=== PATIENT | female | born 1985 | race Caucasian/White ===

== ENCOUNTER 2016-06-22 14:26 | Emergency (ER) | payer MEDICAID ==
--- NOTE | 2016-06-22 14:55 | Emergency Department Record ---
History of Present Illness - General Chief complaint: Female Urogenital Problem Stated complaint: UTI Time Seen by Provider: 06/22/16 14:42 Source: Patient Mode of Arrival: Ambulatory Limitations: No limitations - History of Present Illness Initial comments: 30 yo female presents to ED with a CC of urinary urgency and burning that began approximately 5 days ago. Patient denies fevers, chills, or back pain symptoms , and the patient denies health problems at her baseline. MD Complaint: Dysuria Onset/Timin -: Days(s) Location: Suprapubic Radiation: Non-radiating Severity: Moderate Severity scale (1-10): 7 Quality: Burning Consistency: Intermittent Improves with: None Worsens with: Urination Patient : No LMP Date: 06/11/16 Gestational Age (wks) based on LMP: 1 Associated Symptoms: Abdominal pain, Other - Related Data Home Medications Medication Instructions Recorded Confirmed Last Taken Lamotrigine [Lamictal] 150 mg PO BID 09/10/14 06/22/16 03/27/16 Gabapentin [Neurontin] 800 mg PO BID 01/21/16 06/22/16 03/27/16 Trazodone HCl 100 mg PO DAILY 01/21/16 06/22/16 03/27/16 Previous Rx's Medication Instructions Recorded Ibuprofen [Motrin 200Mg] 600 mg PO Q8HR #30 tablet 09/21/13 Nitrofurantoin [place] [Macrobid] 100 mg PO BID #14 capsule 06/22/16 Allergies Allergy/AdvReac Type Severity Reaction Status Date / Time No Known Drug Allergies Allergy Verified 06/22/16 14:46 Travel Screening - Travel/Exposure Within Last 30 Days Have you traveled within the last 30 days?: No Review of Systems Constitutional: Denies: Chills, Fever, Malaise, Night sweats Eyes: Denies: Eye discharge, Eye pain ENT: Denies: Congestion, Ear pain, Epistaxis Respiratory: Denies: Cough, Dyspnea Cardiovascular: Denies: Chest pain, Dyspnea on exertion Endocrine: Denies: Fatigue, Heat or cold intolerance Gastrointestinal: Denies: Abdominal pain, Nausea, Vomiting Genitourinary: Reports: Dysuria, Frequency. Denies: Retention Musculoskeletal: Denies: Arthralgia, Back pain Skin: Denies: Bruising, Change in color Neurological: Denies: Abnormal gait, Confusion, Headache, Seizure Psychiatric: Denies: Anxiety Hematological/Lymphatic: Denies: Anemia, Blood Clots Past Medical History - SOCIAL HISTORY Smoking Status: Current every day smoker Alcohol Use: None Drug Use: None - RESPIRATORY Hx Respiratory Disorders: No - CARDIOVASCULAR Hx Cardio Disorders: No - NEURO Hx Neuro Disorders: No - GI Hx GI Disorders: No - Hx Genitourinary Disorders: No - ENDOCRINE Hx Endocrine Disorders: No - MUSCULOSKELETAL Hx Musculoskeletal Disorders: Yes Hx Back Injury: Yes (Neck and head injury in 2009) - PSYCH Hx Psych Problems: Yes Hx Anxiety: Yes - HEMATOLOGY/ONCOLOGY Hx Hematology/Oncology Disorders: No Family Medical History Any Significant Family History?: Yes Hx Cancer: Grandparents *Cancer Comment: Stomach and breast Physical Exam - General General Appearance: Alert, Oriented x3, Cooperative, No acute distress Limitations: No limitations - Head Head exam: Atraumatic, Normocephalic, Normal inspection Head exam detail: negative: Abrasion, Contusion, Wolfe's sign, General tenderness, Hematoma, Laceration - Eye Eye exam: Normal appearance. negative: Conjunctival injection, Periorbital swelling, Periorbital tenderness, Scleral icterus - ENT Ear exam: negative: Auricular hematoma, Auricular trauma Nasal Exam: negative: Discharge, Dried blood, Foreign body, Sinus tenderness Mouth exam: negative: Drooling, Laceration, Muffled voice, Tongue elevation - Neck Neck exam: Normal inspection. negative: Meningismus, Tenderness - Respiratory Respiratory exam: Normal lung sounds bilaterally. negative: Respiratory distress, Rhonchi, Stridor, Wheezes - Cardiovascular Cardiovascular Exam: Regular rate, Normal rhythm, Normal heart sounds - GI/Abdominal GI/Abdominal exam: Soft. negative: Rebound, Rigid, Tenderness - Rectal Rectal exam: Deferred - exam: Deferred - Extremities Extremities exam: Normal inspection. negative: Calf tenderness, Pedal edema, Tenderness - Back Back exam: Denies: CVA tenderness (R), CVA tenderness (L) - Neurological Neurological exam: Alert, Normal gait, Oriented X3 - Psychiatric Psychiatric exam: Normal affect, Normal mood - Skin Skin exam: Normal color. negative: Abrasion Type of lesion: negative: abrasion Course Vital Signs 06/22/16 14:41 Temperature 98.4 F Pulse Rate 100 H Respiratory 20 Rate Blood Pressure 122/75 Pulse Ox 99 - Reevaluation(s) Reevaluation #1: 06/22/16 15:09 UA reviewed, 1+ bacteria, 15-20 WBCs, appears c/w infection. Will prescribe Macrobid for treatment of her urinary tract infection symptoms. Patient appears stable for discharge at this time. Disposition Disposition: Discharge Clinical Impression: Urinary tract infection Qualifiers: Urinary tract infection type: site unspecified Hematuria presence: without hematuria Qualified Code(s): N39.0 - Urinary tract infection, site not specified Disposition: Home, Self-Care Condition: (2) Stable Instructions: Urinary Tract Infection in Women (ED) Additional Instructions: Return to ED if your symptoms worsen or if you have any concerns. Macrobid as directed. Follow-up with your family doctor in 3-5 days as directed. Prescriptions: Nitrofurantoin [place] [Macrobid] 100 mg PO BID #14 capsule Forms: Patient Portal Access Time of Disposition: 15:11
[2016-06-22 14:59] LABS: URINE APPEARANCE SL CLOUDY; URINE BILIRUBIN NEGATIVE (NEGATIVE); URINE BLOOD TRACE-I (NEGATIVE); URINE COLOR YELLOW; URINE GLUCOSE (UA) NEGATIVE (NEGATIVE); URINE KETONE NEGATIVE (NEGATIVE); URINE LEUKOCYTE ESTERASE SMALL (NEGATIVE); URINE NITRITE NEGATIVE (NEGATIVE); URINE PROTEIN NEGATIVE (NEGATIVE); URINE UROBILINOGEN 0.2 E.U./dL (0.20 - 1.00)
[2016-06-22 15:07] LABS: URINE BACTERIA 1+
== END 2016-06-22 15:22 | disposition home or self-care (01) ==
LOC: ER 14:26
DX: N39.0 Urinary tract infection, site not specified (principal); R10.9 Unspecified abdominal pain
CPT/HCPCS: 81001; 99282

== ENCOUNTER 2016-07-22 10:55 | Emergency (ER) | payer MEDICAID ==
--- NOTE | 2016-07-22 11:24 | Emergency Department Record ---
History of Present Illness - General Chief complaint: Female Urogenital Problem Stated complaint: MY KIDNEYS ARE HURTING Time Seen by Provider: 07/22/16 11:23 Source: Patient Mode of Arrival: Ambulatory Limitations: No limitations - History of Present Illness Initial comments: The patient is here due to a one week hx of bilateral R>L flank pain with dysuria. She has had UTI's and kidney infections in the past and it feels similar now but the pain is worse. There is no reported fever, chills, vomiting , or diarrhea. MD Complaint: Dysuria Onset/Timin -: Week(s) Radiation: R flank Severity: Severe Severity scale (1-10): 9 Quality: Sharp Consistency: Constant Improves with: None Worsens with: None Associated Symptoms: Other - Related Data Home Medications Medication Instructions Recorded Confirmed Last Taken Lamotrigine [Lamictal] 150 mg PO BID 09/10/14 07/22/16 03/27/16 Gabapentin [Neurontin] 800 mg PO BID 01/21/16 07/22/16 03/27/16 Trazodone HCl 100 mg PO DAILY 01/21/16 07/22/16 03/27/16 Previous Rx's Medication Instructions Recorded Ibuprofen [Motrin 200Mg] 600 mg PO Q8HR #30 tablet 09/21/13 Ciprofloxacin HCl [Cipro] 500 mg PO Q12HR #14 tablet 07/22/16 Hydrocodone/Acetaminophen [Citra 1 - 2 each PO .EVERY 4-6 HRS PRN 07/22/16 5-325 Tablet] #20 tablet Allergies Allergy/AdvReac Type Severity Reaction Status Date / Time No Known Drug Allergies Allergy Verified 07/22/16 11:14 Travel Screening - Travel/Exposure Within Last 30 Days Have you traveled within the last 30 days?: No Review of Systems Constitutional: Denies: Chills, Fever Eyes: Denies: Eye discharge ENT: Denies: Congestion Respiratory: Denies: Cough, Dyspnea Past Medical History - SOCIAL HISTORY Smoking Status: Current every day smoker Alcohol Use: None Drug Use: None - RESPIRATORY Hx Respiratory Disorders: No - CARDIOVASCULAR Hx Cardio Disorders: No - NEURO Hx Neuro Disorders: No - GI Hx GI Disorders: No - Hx Genitourinary Disorders: Yes Hx UTI: Yes - ENDOCRINE Hx Endocrine Disorders: No - MUSCULOSKELETAL Hx Musculoskeletal Disorders: Yes Hx Back Injury: Yes (Neck and head injury in 2009) - PSYCH Hx Psych Problems: Yes Hx Anxiety: Yes - HEMATOLOGY/ONCOLOGY Hx Hematology/Oncology Disorders: No Family Medical History Any Significant Family History?: Yes Hx Cancer: Grandparents *Cancer Comment: Stomach and breast Physical Exam - General General Appearance: Alert, Oriented x3, Cooperative, No acute distress - Head Head exam: Atraumatic, Normocephalic, Normal inspection - Eye Eye exam: Normal appearance, PERRL - ENT Throat exam: Normal inspection. negative: Tonsillar erythema, Tonsillar exudate - Neck Neck exam: Normal inspection, Full ROM. negative: Tenderness - Respiratory Respiratory exam: Normal lung sounds bilaterally. negative: Respiratory distress - Cardiovascular Cardiovascular Exam: Regular rate, Normal rhythm, Normal heart sounds - GI/Abdominal GI/Abdominal exam: Soft. negative: Guarding, Rebound, Rigid, Tenderness - Back Back exam: Reports: CVA tenderness (R) (mild.), CVA tenderness (L) (mild.) - Neurological Neurological exam: Alert, Normal gait. negative: Abnormal gait, Motor sensory deficit Course Vital Signs 07/22/16 11:09 Temperature 98.3 F Pulse Rate 110 H Respiratory 18 Rate Blood Pressure 139/77 Pulse Ox 99 - Reevaluation(s) Reevaluation #1: The patient is doing better at this time. She is still having the pain but it is improved. I explained to her that it appears that she has a mild kidney infection. We will refer the patient to Dr. Forde in the Specialty clinic for next week for further eval. 07/22/16 13:43 Medical Decision Making - Data Complexity MDM Data: Labs Ordered and/or Reviewed, X-Ray Ordered and/or Reviewed - Lab Data Result diagrams: 07/22/16 11:53 07/22/16 11:53 - Radiology Data Radiology results: Report reviewed (CT: Neg stone or hydro but prob. Pyelonephritis R kidney.) Disposition Disposition: Discharge Clinical Impression: Pyelonephritis Disposition: Home, Self-Care Condition: (1) Good Instructions: Acute Pyelonephritis (ED) Additional Instructions: Please drink plenty of fluids and take the Cipro and pain medicines as directed. Please return to the ER for any increased pain, fever, or vomiting. Please see Dr. Forde next week in the Specialty clinic as directed. Prescriptions: Ciprofloxacin HCl [Cipro] 500 mg PO Q12HR #14 tablet Hydrocodone/Acetaminophen [Citra 5-325 Tablet] 1 - 2 each PO .EVERY 4-6 HRS PRN #20 tablet PRN Reason: Pain Forms: Patient Portal Access Time of Disposition: 13:48
[2016-07-22] MEDS ORDERED: 0.9 % SODIUM CHLORIDE 1,000 ML BAG IV ONE (11:31)
[2016-07-22 12:10] LABS: URINE BILIRUBIN NEGATIVE (NEGATIVE); URINE BLOOD MODERATE (NEGATIVE); URINE COLOR YELLOW; URINE GLUCOSE (UA) NEGATIVE (NEGATIVE); URINE KETONE NEGATIVE (NEGATIVE); URINE LEUKOCYTE ESTERASE MODERATE (NEGATIVE); URINE NITRITE NEGATIVE (NEGATIVE); URINE PROTEIN TRACE (NEGATIVE); URINE UROBILINOGEN 0.2 E.U./dL (0.20 - 1.00)
[2016-07-22 12:12] LABS: HEMATOCRIT 40.1 % (35.0-47.0); HEMOGLOBIN 13.6 gm/dl (11.6-16.0); MEAN CELL VOLUME 91.3 fl (81-97); MEAN CORPUSCULAR HGB CONC 33.9 g/dl (32-36); MEAN PLATELET VOLUME 9.2 fl (7.4-10.4); PLATELET COUNT 277 K/uL (130-400); RED BLOOD COUNT 4.39 M/uL (3.80-5.40); RED CELL DISTRIBUTION WIDTH 12.7 % (11.5-14.5); WHITE BLOOD COUNT W/O DIFF 13.1 K/uL (4.2-12.2)
[2016-07-22 12:14] LABS: HCG,QUALITATIVE URINE NEGATIVE (NEGATIVE)
[2016-07-22] MEDS ORDERED: ONDANSETRON HCL IV 4 MG/2 ML VIAL IVP ONE (12:16)
[2016-07-22] MEDS ORDERED: KETOROLAC 30 MG/ML VIAL IVP ONE ×2 (12:16→12:51)
[2016-07-22 12:17] LABS: URINE APPEARANCE CLOUDY; URINE WBC 21 - 35 (0-2/hpf)
[2016-07-22 12:18] LABS: URINE BACTERIA 2+
[2016-07-22 12:24] LABS: ANION GAP 9.1 (7-16); BLOOD UREA NITROGEN 12 mg/dL (7-17); CARBON DIOXIDE 27.9 mmol/L (22-30); CREATININE 0.6 mg/dL (0.52-1.04); EST GLOMERULAR FILTRATION RATE > 60 ml/min; GLUCOSE,RANDOM 108 mg/dL (70-110)
[2016-07-22] MEDS ORDERED: CEFTRIAXONE SODIUM 1 GM in 0.9 % SODIUM CHLORIDE 100ML 100 ML IVPB ONE (12:31)
[2016-07-22] MEDS ORDERED: HYDROCODONE/APAP 5/325MG TABLET PO ONE (13:45)
--- NOTE | 2016-07-28 10:02 | CT SCAN REPORT ---
EXAM: CT SCAN OF THE ABDOMEN AND PELVIS WITHOUT CONTRAST HISTORY: PATIENT HAS KIDNEY PAIN. PAINFUL URINATION. TECHNIQUE: Serial axial CT scan of the abdomen and pelvis was performed in 3.75 mm intervals from the dome of the diaphragm down to the pubic symphysis without the use of intravenous or oral contrast. Comparison: CT scan of the abdomen and pelvis dated 12/12/13 is provided. FINDINGS: The lung windows of the lung bases demonstrate no CT evidence of a focal infiltrate or pleural effusion. 3 mm nodule at the anterior aspect of the right middle lobe is unchanged with respect to the prior CT scan. The visualized heart size and contour is within normal limits. The liver, spleen, pancreas, gallbladder, and bilateral adrenal glands appear unremarkable. There is asymmetric hypodensity of the right kidney with mild perinephric fat stranding. No obvious right sided hydronephrosis or hydroureter is noted. No renal or ureteral calculi can be identified, therefore, I suspect this asymmetric appearance of the right kidney may be related to pyelonephritis. Clinical correlation is recommended. The contour and caliber of the abdominal aorta is within normal limits. There is no CT evidence of retroperitoneal, pelvic, or inguinal lymphadenopathy. The bowel gas pattern is nonspecific and nonobstructive. There is no CT evidence of free intraperitoneal fluid or free intraperitoneal air. The urinary bladder is unremarkable. The uterus is retroverted. Occasional follicles are identified within the bilateral ovaries. Bone windows demonstrate no CT evidence of a fracture or dislocation of the visualized osseous structures of the abdomen and pelvis. IMPRESSION: ASYMMETRIC APPEARANCE OF THE RIGHT KIDNEY IS NOTED DESCRIBED ABOVE WITHOUT CT EVIDENCE OF RENAL OR URETERAL CALCULI. NO OBVIOUS HYDRONEPHROSIS OR HYDROURETER IS NOTED. THEREFORE, I SUSPECT THESE FINDINGS MAY BE RELATED TO PYELONEPHRITIS. CLINICAL CORRELATION IS RECOMMENDED. JOB NUMBER: [id number] [facility]
== END 2016-07-22 13:55 | disposition home or self-care (01) ==
LOC: ER 10:55
DX: N10 Acute pyelonephritis (principal)
CPT/HCPCS: 99284 ×2; 96376; 96365; 96375; 80048; 81001; 81025; 85027; 74176; J1885; J2405; J7030

== ENCOUNTER 2017-06-16 17:22 | Emergency (ER) | payer MEDICAID ==
[2017-06-16] MEDS ORDERED: METHYLPREDNISOLONE PF 125MG/VIAL IM ONE (18:17)
[2017-06-16] MEDS ORDERED: DIPHENHYDRAMINE HCL 25 MG CAPSULE PO ONE (18:17)
--- NOTE | 2017-06-16 18:26 | Emergency Department Record ---
History of Present Illness - General Chief complaint: Rash Stated complaint: POISON DEL[place] Time Seen by Provider: 06/16/17 18:12 Source: Patient Mode of Arrival: Ambulatory Limitations: No limitations - History of Present Illness Initial comments: pt is c/o poison delmar. she has been doing logging. she has had poison delmar many times in the past. it is on her forearms and face. complaint: Rash Onset/Timin -: Days(s) Hx Tetanus Toxoid Vaccination: Yes Year of Tetanus Vaccination: unknown Location: Face, LUE, RUE Severity: Mild - Related Data Previous Rx's Medication Instructions Recorded Ibuprofen 200 mg Tablet [Motrin 600 mg PO Q8HR #30 tablet 09/21/13 200Mg] Methylprednisolone [Medrol Dose 4 mg PO ASDIR #1 tab.ds.pk 06/16/17 Pack] Allergies Allergy/AdvReac Type Severity Reaction Status Date / Time No Known Drug Allergies Allergy Verified 06/16/17 18:02 Travel Screening - Travel/Exposure Within Last 30 Days Have you traveled within the last 30 days?: No - Travel/Exposure Within Last Year Have you traveled outside the [place] in the last year?: No - Additonal Travel Details Have you been exposed to anyone with a communicable illness?: No - Travel Symptoms Symptom Screening: None Review of Systems Reviewed: No additional complaints except as noted below Constitutional: Reports: As per HPI. Denies: Chills, Fever, Malaise, Night sweats, Weakness, Weight change Eyes: Reports: As per HPI. Denies: Eye discharge, Eye pain, Photophobia, Vision change ENT: Reports: As per HPI. Denies: Congestion, Dental pain, Ear pain, Epistaxis , Hearing loss, Throat pain Respiratory: Reports: As per HPI. Denies: Cough, Dyspnea, Hemoptysis, Stridor, Wheezes Cardiovascular: Reports: As per HPI. Denies: Arrhythmia, Chest pain, Dyspnea on exertion, Edema, Murmurs, Orthopnea, Palpitations, Paroxysmal nocturnal dyspnea, Rheumatic Fever, Syncope Endocrine: Reports: As per HPI. Denies: Fatigue, Heat or cold intolerance, Polydipsia, Polyuria Gastrointestinal: Reports: As per HPI. Denies: Abdominal pain, Constipation, Diarrhea, Hematemesis, Hematochezia, Melena, Nausea, Vomiting Genitourinary: Reports: As per HPI. Denies: Abnormal menses, Discharge, Dyspareunia, Dysuria, Frequency, Hematuria, Incontinence, Retention, Urgency Musculoskeletal: Reports: As per HPI. Denies: Arthralgia, Back pain, Gout, Joint swelling, Myalgia, Neck pain Skin: Reports: As per HPI. Denies: Bruising, Change in color, Change in hair/ nails, Lesions, Pruritus, Rash Neurological: Reports: As per HPI. Denies: Abnormal gait, Confusion, Headache, Numbness, Paresthesias, Seizure, Tingling, Tremors, Vertigo, Weakness Psychiatric: Reports: As per HPI. Denies: Anxiety, Auditory hallucinations, Depression, Homicidal thoughts, Suicidal thoughts, Visual hallucinations Hematological/Lymphatic: Reports: As per HPI. Denies: Anemia, Blood Clots, Easy bleeding, Easy bruising, Swollen glands Past Medical History - SOCIAL HISTORY Smoking Status: Current every day smoker Alcohol Use: Heavy Drug Use: Occasional Drug Use Detail:: Marijuana - RESPIRATORY Hx Respiratory Disorders: No - CARDIOVASCULAR Hx Cardio Disorders: No - NEURO Hx Neuro Disorders: No - GI Hx GI Disorders: No - Hx Genitourinary Disorders: Yes Hx UTI: Yes - ENDOCRINE Hx Endocrine Disorders: No - MUSCULOSKELETAL Hx Musculoskeletal Disorders: Yes Hx Back Injury: Yes (Neck and head injury in 2010) - PSYCH Hx Psych Problems: Yes Hx Anxiety: Yes - HEMATOLOGY/ONCOLOGY Hx Hematology/Oncology Disorders: No Family Medical History Any Significant Family History?: No Hx Cancer: Grandparents *Cancer Comment: Stomach and breast Physical Exam - General General Appearance: Alert, Oriented x3, Cooperative, No acute distress - Head Head exam: Normal inspection - Eye Eye exam: Normal appearance, PERRL, EOMI Pupils: Normal accommodation - ENT ENT exam: Normal exam, Mucous membranes moist, Normal external ear exam, Normal orophraynx Ear exam: Normal external inspection. negative: External canal tenderness Nasal Exam: Normal inspection. negative: Discharge, Sinus tenderness Mouth exam: Normal external inspection, Tongue normal Teeth exam: Normal inspection. negative: Dental caries Throat exam: Normal inspection. negative: Tonsillar erythema, Tonsillar exudate - Neck Neck exam: Normal inspection, Full ROM. negative: Tenderness - Respiratory Respiratory exam: Normal lung sounds bilaterally. negative: Respiratory distress - Cardiovascular Cardiovascular Exam: Regular rate, Normal rhythm, Normal heart sounds - GI/Abdominal GI/Abdominal exam: Soft, Normal bowel sounds. negative: Tenderness - Rectal Rectal exam: Deferred - exam: Deferred - Extremities Extremities exam: Normal inspection, Full ROM, Normal capillary refill. negative: Tenderness - Back Back exam: Reports: Normal inspection, Full ROM. Denies: Muscle spasm, Rash noted, Tenderness - Neurological Neurological exam: Alert, Normal gait, Oriented X3, Reflexes normal - Psychiatric Psychiatric exam: Normal affect, Normal mood - Skin Skin exam: Dry, Intact, Normal color, Rash, Warm Distribution of rash: Face, RUE, LUE Description of rash: Crusting, Erythematous, Vesicular Course Vital Signs 06/16/17 17:55 Temperature 98.8 F Pulse Rate 106 H Respiratory 18 Rate Blood Pressure 145/96 Pulse Ox 98 Disposition Disposition: Discharge Clinical Impression: Poison delmar dermatitis Disposition: Home, Self-Care Condition: (1) Good Instructions: Poison [place] (ED), Cold Compress or Soak (ED) Additional Instructions: follow up with family doctor. return sooner if worse. continue benadryl every 6 hours as needed Prescriptions: Methylprednisolone [Medrol Dose Pack] 4 mg PO ASDIR #1 tab.ds.pk Forms: Patient Portal Access Quality - Quality Measures Quality Measures: N/A - Blood Pressure Screening Does Patient Have Any of the Following: No Blood Pressure Classification: Hypertensive Reading Systolic Measurement: 145 Diastolic Measurement: 96 Screening for High Blood Pressure: < First Hypertensive BP, F/U Documented > [ [id number]] First Hypertensive Follow-up Interventions: Follow-up with rescreen GT 1 day and LT 4 weeks.
== END 2017-06-16 19:28 | disposition home or self-care (01) ==
LOC: ER 17:22
DX: L23.7 Allergic contact dermatitis due to plants, except food (principal)
CPT/HCPCS: 96372; 99283; J2930

== ENCOUNTER 2017-11-17 18:30 | Emergency (ER) | payer MEDICAID ==
[2017-11-17] MEDS ORDERED: PROPARACAINE HCL OPTH 15ML BTL OPTH ONE ×2 (18:46→18:48)
[2017-11-17] MEDS ORDERED: GENTAMICIN SULFATE 0.3% OPTH 5 ML BTL OPTH ONE (19:05)
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
== END 2017-11-17 19:26 | disposition home or self-care (01) ==
LOC: ER 18:30
DX: S05.01XA Injury of conjunctiva and corneal abrasion without foreign body, right eye, initial encounter (principal); W22.8XXA Striking against or struck by other objects, initial encounter; Y92.009 Unspecified place in unspecified non-institutional (private) residence as the place of occurrence of the external cause; F17.210 Nicotine dependence, cigarettes, uncomplicated
CPT/HCPCS: 99282

== ENCOUNTER 2018-03-02 20:32 | Emergency (ER) | payer MEDICAID ==
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
[2018-03-02] MEDS: 0.9 % SODIUM CHLORIDE 1000ML 1,000 ML IV SCH (20:57)
[2018-03-02] MEDS: ONDANSETRON HCL IV 4 MG/2 ML VIAL IVP ONE (20:58)
[2018-03-02] MEDS: MORPHINE SULFATE 10 MG/ML VIAL IVP ONE (20:58)
[2018-03-02 21:00] LABS: HEMATOCRIT 39.1 % (35.0-47.0); HEMOGLOBIN 12.8 gm/dl (11.6-16.0); MEAN CELL VOLUME 89.3 fl (81-97); MEAN CORPUSCULAR HEMOGLOBIN 29.2 pg (27-33); MEAN CORPUSCULAR HGB CONC 32.7 g/dl (32-36); MEAN PLATELET VOLUME 9.2 fl (7.4-10.4); PLATELET COUNT 313 K/uL (130-400); RED BLOOD COUNT 4.38 M/uL (3.80-5.40); RED CELL DISTRIBUTION WIDTH 13.5 % (11.5-14.5); WHITE BLOOD COUNT W/O DIFF 15.2 K/uL (4.2-12.2)
[2018-03-02 21:08] LABS: BLOOD UREA NITROGEN 13 mg/dL (6-20); CREATININE 0.7 mg/dL (0.5-0.9); EST GLOMERULAR FILTRATION RATE > 60 mL/min; TOTAL PROTEIN 6.4 g/dL (6.6-8.7)
[2018-03-02 21:10] LABS: GLUCOSE,RANDOM 171 mg/dL (74-109)
[2018-03-02 21:13] LABS: ALB/GLOB RATIO 1.8 (1.1-1.8); ALBUMIN 4.1 g/dL (4.0-5.0); ALKALINE PHOSPHATASE 63 U/L (35-104); ALT/SGPT 26 U/L (<33); AST/SGOT 25 U/L (10.0-35.0)
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
== END 2018-03-03 00:24 | disposition short-term general hospital (02) ==
LOC: ER 20:32
DX: S27.0XXA Traumatic pneumothorax, initial encounter (principal); S42.002A Fracture of unspecified part of left clavicle, initial encounter for closed fracture; V86.55XA Driver of 3- or 4- wheeled all-terrain vehicle (ATV) injured in nontraffic accident, initial encounter; F17.210 Nicotine dependence, cigarettes, uncomplicated
CPT/HCPCS: 99285 ×2; 96374; 96375; 80053; 85027; 72125; 71250; 70450; G0480; J2405; J2270; 80320; J7030

== ENCOUNTER 2019-04-14 14:06 | Emergency (ER) | payer MEDICAID ==
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
[2019-04-14 14:41] LABS: URINE APPEARANCE CLEAR; URINE BILIRUBIN NEGATIVE (NEGATIVE); URINE BLOOD NEGATIVE (NEGATIVE); URINE GLUCOSE (UA) NEGATIVE (NEGATIVE); URINE KETONE NEGATIVE (NEGATIVE); URINE LEUKOCYTE ESTERASE TRACE (NEGATIVE); URINE NITRITE NEGATIVE (NEGATIVE); URINE PROTEIN NEGATIVE (NEGATIVE); URINE UROBILINOGEN 0.2 E.U./dL (0.20 - 1.00)
[2019-04-14 14:46] LABS: URINE COLOR STRAW
[2019-04-14 14:47] LABS: HCG,QUALITATIVE URINE NEGATIVE (NEGATIVE); URINE EPITHELIAL CELLS RARE (FEW); URINE RBC NONE SEEN (NONE SEEN)
[2019-04-14] MEDS ORDERED: TMP/SMZ 160MG/800MG TAB PO ONE (14:49)
[2019-04-14] MEDS ORDERED: IBUPROFEN 600 MG TABLET PO ONE (14:56)
[2019-04-14 15:15] LABS: ABSOLUTE NEUTROPHIL COUNT 5.59; BASO % 0.6 % (0-6); EOS % 2.9 % (0-6); GRAN % 66.4 % (47-80); HEMOGLOBIN 14.7 gm/dl (11.6-16.0); LYMPH % 22.7 % (16-45); MEAN CELL VOLUME 89.1 fl (81-97); MEAN CORPUSCULAR HEMOGLOBIN 28.5 pg (27-33); MEAN PLATELET VOLUME 9.5 fl (7.4-10.4); MONO % 7.4 % (0-9); PLATELET COUNT 308 K/uL (130-400); RED BLOOD COUNT 5.16 M/uL (3.80-5.40); RED CELL DISTRIBUTION WIDTH 15.2 % (11.5-14.5); WHITE BLOOD COUNT W/O DIFF 8.4 K/uL (4.2-12.2)
[2019-04-14 15:29] LABS: BILIRUBIN,TOTAL < 0.20 mg/dL (0.2-1.0); BLOOD UREA NITROGEN 13 mg/dL (6-20); CREATININE 0.5 mg/dL (0.5-0.9); EST GLOMERULAR FILTRATION RATE > 60 mL/min
[2019-04-14 15:30] LABS: TOTAL PROTEIN 7.3 g/dL (6.6-8.7)
[2019-04-14 15:32] LABS: GLUCOSE,RANDOM 80 mg/dL (74-109)
[2019-04-14 15:34] LABS: ALB/GLOB RATIO 1.5 (1.1-1.8); ALBUMIN 4.4 g/dL (4.0-5.0); ALKALINE PHOSPHATASE 96 U/L (35-104); ALT/SGPT 31 U/L (<33); AST/SGOT 24 U/L (10.0-35.0)
[2019-04-14 15:35] LABS: C-REACTIVE PROTEIN 0.86 mg/dL (<0.5)
--- NOTE | 2019-04-14 15:40 | CT SCAN REPORT ---
EXAMINATION: CT Abdomen and Pelvis without IV Contrast EXAM DATE: 04/14/2019 3:24 PM TECHNIQUE: Standard protocol CT imaging of the abdomen and pelvis was performed without intravenous c ontrast. INDICATION: Flank pain COMPARISON: 07/22/2016 ENCOUNTER: Not applicable CT ABDOMEN AND PELVIS FINDINGS: Lung Bases: Unremarkable. Hepatobiliary: The liver is smooth in contour. No focal hepatic lesions. Pancreas: The pancreas is normal. Spleen: The spleen is not enlarged. Adrenals: The adrenal glands are normal. Kidneys, Ureters, & Bladder: No calcified renal or ureteral stones. There is mild haziness of the rig ht perinephric fat. No hydronephrosis. Both ureters have a normal course and caliber and the urinary bladder a normal morphology and uniform wall thickness. No ureteral or bladder calculi are identified . Gastrointestinal: The stomach and small bowel are normal with no obstruction or inflammation. No CT s igns of acute appendicitis. The large bowel is within normal limits. Reproductive Organs: Unremarkable Lymphatic System: There is no adenopathy within the abdomen or pelvis. Vasculature: Normal caliber abdominal aorta Peritoneum: No free fluid, free air, or inflammation Abdominal wall & Musculoskeletal: Tiny fat filled periumbilical hernia. Assessment of the solid organs, soft tissues, and vascular structures is overall limited on noncontra st imaging, IMPRESSION: No obstructive renal or ureteral stones. There is mild haziness of the fat adjacent to the right kidn ey which may be due to a recently passed stone or an ascending urinary tract infection. Pyelonephriti s would be a consideration. Laboratory correlation is recommended. Dictated by: Shivam Jensen on 04/14/2019 3:27 PM. .
[2019-04-14] MEDS ORDERED: ACETAMINOPHEN 1,000 MG/100 ML BTL IVPB ONE (15:47)
[2019-04-14] MEDS ORDERED: CEFTRIAXONE 1GM/50ML BAG 1 GM/50 ML BAG IVPB ONE (15:48)
== END 2019-04-14 16:40 | disposition home or self-care (01) ==
LOC: ER 14:06
DX: N39.0 Urinary tract infection, site not specified (principal); F17.210 Nicotine dependence, cigarettes, uncomplicated
CPT/HCPCS: 99284 ×2; 96365; 96375; 85025; 86140; 80053; 81001; 81025; 74176; J3490; J0696

== ENCOUNTER 2019-06-01 06:02 | Emergency (ER) | payer MEDICAID ==
[2019-06-01] MEDS ORDERED: KETOROLAC 30 MG/ML VIAL IVP ONE (06:28)
[2019-06-01] MEDS ORDERED: DEXTROSE IV ONE (06:28)
[2019-06-01] MEDS ORDERED: LACTATED RINGERS IV ONE (06:28)
[2019-06-01] MEDS ORDERED: 0.9 % SODIUM CHLORIDE 1,000 ML BAG IV ONE (06:28)
[2019-06-01] MEDS ORDERED: ONDANSETRON HCL IV 4 MG/2 ML VIAL IV ONE (06:28)
--- NOTE | 2019-06-01 06:35 | Emergency Department Record ---
History of Present Illness - General Chief Complaint: Abdominal Pain Stated Complaint: ABDOMINAL PAIN Time Seen by Provider: 06/01/19 06:22 Source: Patient Mode of Arrival: Ambulatory Limitations: No limitations - History of Present Illness Initial Comments: pt c/o l sided ap for 20 minutes. it is sharp and constant. pt has nausea. no v/c/d. she also has dysuria MD Complaint: Abdominal pain Onset/Timin -: Minutes(s) Location: LUQ, LLQ Severity scale (1-10): 10 Quality: Sharp Consistency: Constant Improves With: Nothing Worsens With: Nothing Associated Symptoms: Dysuria - Related Data LMP (females 10-50): Last week Patient : No Home Medications Medication Instructions Recorded Confirmed Last Taken Multivitamin [Multiple Vitamins] 1 tab PO DAILY 06/01/19 06/01/19 05/31/19 Allergies Allergy/AdvReac Type Severity Reaction Status Date / Time No Known Drug Allergies Allergy Verified 04/14/19 14:11 Travel Screening - Travel/Exposure Within Last 30 Days Have you traveled within the last 30 days?: No - Travel/Exposure Within Last Year Have you traveled outside the [place] in the last year?: No - Travel Symptoms Symptom Screening: None Review of Systems Reviewed: No additional complaints except as noted below Constitutional: Reports: As per HPI. Denies: Chills, Fever, Malaise, Night sweats, Weakness, Weight change Eyes: Reports: As per HPI. Denies: Eye discharge, Eye pain, Photophobia, Vision change ENT: Reports: As per HPI. Denies: Congestion, Dental pain, Ear pain, Epistaxis, Hearing loss, Throat pain Respiratory: Reports: As per HPI. Denies: Cough, Dyspnea, Hemoptysis, Stridor, Wheezes Cardiovascular: Reports: As per HPI. Denies: Arrhythmia, Chest pain, Dyspnea on exertion, Edema, Murmurs, Orthopnea, Palpitations, Paroxysmal nocturnal dyspnea, Rheumatic Fever, Syncope Endocrine: Reports: As per HPI. Denies: Fatigue, Heat or cold intolerance, Polydipsia, Polyuria Gastrointestinal: Reports: As per HPI. Denies: Abdominal pain, Constipation, Diarrhea, Hematemesis, Hematochezia, Melena, Nausea, Vomiting Genitourinary: Reports: As per HPI. Denies: Abnormal menses, Discharge, Dyspareunia, Dysuria, Frequency, Hematuria, Incontinence, Retention, Urgency Musculoskeletal: Reports: As per HPI. Denies: Arthralgia, Back pain, Gout, Joint swelling, Myalgia, Neck pain Skin: Reports: As per HPI. Denies: Bruising, Change in color, Change in hair/nails, Lesions, Pruritus, Rash Neurological: Reports: As per HPI. Denies: Abnormal gait, Confusion, Headache, Numbness, Paresthesias, Seizure, Tingling, Tremors, Vertigo, Weakness Psychiatric: Reports: As per HPI. Denies: Anxiety, Auditory hallucinations, Depression, Homicidal thoughts, Suicidal thoughts, Visual hallucinations Hematological/Lymphatic: Reports: As per HPI. Denies: Anemia, Blood Clots, Easy bleeding, Easy bruising, Swollen glands Past Medical History - SOCIAL HISTORY Smoking Status: Current every day smoker Alcohol Use: Heavy Drug Use: Heavy Drug Use Detail:: Marijuana - RESPIRATORY Hx Respiratory Disorders: No - CARDIOVASCULAR Hx Cardio Disorders: No - NEURO Hx Neuro Disorders: No - GI Hx GI Disorders: No - Hx Genitourinary Disorders: Yes Hx UTI: Yes - ENDOCRINE Hx Endocrine Disorders: No - MUSCULOSKELETAL Hx Musculoskeletal Disorders: Yes Hx Back Injury: Yes (Neck and head injury in 2010) - PSYCH Hx Psych Problems: No - HEMATOLOGY/ONCOLOGY Hx Hematology/Oncology Disorders: No Family Medical History Any Significant Family History?: Yes Hx Cancer: Grandparents *Cancer Comment: Stomach and breast Physical Exam - General General Appearance: Alert, Oriented x3, Cooperative, Mild distress - Head Head exam: Normal inspection - Eye Eye exam: Normal appearance, PERRL, EOMI Pupils: Normal accommodation - ENT ENT exam: Normal exam, Mucous membranes moist, Normal external ear exam, Normal orophraynx Ear exam: Normal external inspection. negative: External canal tenderness Nasal Exam: Normal inspection. negative: Discharge, Sinus tenderness Mouth exam: Normal external inspection, Tongue normal Teeth exam: Normal inspection. negative: Dental caries Throat exam: Normal inspection. negative: Tonsillar erythema, Tonsillar exudate - Neck Neck exam: Normal inspection, Full ROM. negative: Tenderness - Respiratory Respiratory exam: Normal lung sounds bilaterally. negative: Respiratory di stress - Cardiovascular Cardiovascular Exam: Regular rate, Normal rhythm, Normal heart sounds - GI/Abdominal GI/Abdominal exam: Soft, Normal bowel sounds, Tenderness (llq) - Rectal Rectal exam: Deferred - exam: Deferred - Extremities Extremities exam: Normal inspection, Full ROM, Normal capillary refill. negative: Tenderness - Back Back exam: Reports: Normal inspection, Full ROM. Denies: Muscle spasm, Rash noted, Tenderness - Neurological Neurological exam: Alert, CN II-XII intact, Normal gait, Oriented X3 - Psychiatric Psychiatric exam: Normal affect, Normal mood - Skin Skin exam: Dry, Intact, Normal color, Warm Course Vital Signs 06/01/19 06:05 Temperature 97.5 F L Pulse Rate 91 H Respiratory 24 Rate Blood Pressure 163/113 Pulse Ox 100 - Reevaluation(s) Reevaluation #1: 06/01/19 06:46 care being turned over to dr valera. Medical Decision Making - Lab Data Result diagrams: 06/01/19 06:15 06/01/19 06:15 Disposition Forms: Patient Portal Access Quality - Quality Measures Quality Measures: N/A - Blood Pressure Screening Does Patient Have Any of the Following: No Blood Pressure Classification: Hypertensive Reading Systolic Measurement: 163 Diastolic Measurement: 113 Screening for High Blood Pressure: < First Hypertensive BP, F/U Documented > [G8950] First Hypertensive Follow-up Interventions: Follow-up with rescreen GT 1 day and LT 4 weeks.
[2019-06-01 06:36] LABS: ABSOLUTE NEUTROPHIL COUNT 2.99; BASO % 0.8 % (0-6); GRAN % 49.9 % (47-80); HEMATOCRIT 37.9 % (35.0-47.0); HEMOGLOBIN 12.1 gm/dl (11.6-16.0); LYMPH % 35.3 % (16-45); MEAN CORPUSCULAR HEMOGLOBIN 28.4 pg (27-33); MEAN CORPUSCULAR HGB CONC 31.9 g/dl (32-36); MEAN PLATELET VOLUME 9.7 fl (7.4-10.4); PLATELET COUNT 298 K/uL (130-400); RED BLOOD COUNT 4.26 M/uL (3.80-5.40); RED CELL DISTRIBUTION WIDTH 14.4 % (11.5-14.5)
[2019-06-01 06:48] LABS: BLOOD UREA NITROGEN 16 mg/dL (6-20); CREATININE 0.6 mg/dL (0.5-0.9); EST GLOMERULAR FILTRATION RATE > 60 mL/min
[2019-06-01 06:49] LABS: LIPASE 19 U/L (13-60); TOTAL PROTEIN 6.5 g/dL (6.6-8.7)
[2019-06-01 06:51] LABS: GLUCOSE,RANDOM 99 mg/dL (74-109)
[2019-06-01 06:54] LABS: ALB/GLOB RATIO 1.7 (1.1-1.8); ALBUMIN 4.1 g/dL (4.0-5.0); ALKALINE PHOSPHATASE 76 U/L (35-104); ALT/SGPT 33 U/L (<33); AST/SGOT 32 U/L (10.0-35.0)
[2019-06-01 07:14] LABS: URINE APPEARANCE CLEAR; URINE BILIRUBIN NEGATIVE (NEGATIVE); URINE BLOOD NEGATIVE (NEGATIVE); URINE COLOR YELLOW; URINE GLUCOSE (UA) NEGATIVE (NEGATIVE); URINE KETONE NEGATIVE (NEGATIVE); URINE LEUKOCYTE ESTERASE NEGATIVE (NEGATIVE); URINE NITRITE NEGATIVE (NEGATIVE); URINE PROTEIN NEGATIVE (NEGATIVE); URINE UROBILINOGEN 0.2 E.U./dL (0.20 - 1.00)
--- NOTE | 2019-06-01 07:21 | Emergency Department Record ---
History of Present Illness - General Chief Complaint: Abdominal Pain Stated Complaint: ABDOMINAL PAIN Time Seen by Provider: 06/01/19 06:22 Source: Patient Mode of Arrival: Ambulatory Limitations: No limitations - History of Present Illness MD Complaint: Abdominal pain Onset/Timin -: Minutes(s) Location: LUQ, LLQ Severity scale (1-10): 10 Quality: Sharp Consistency: Constant Improves With: Nothing Worsens With: Nothing Associated Symptoms: Dysuria - Related Data LMP (females 10-50): Last week Patient : No Home Medications Medication Instructions Recorded Confirmed Last Taken Multivitamin [Multiple Vitamins] 1 tab PO DAILY 06/01/19 06/01/19 05/31/19 Previous Rx's Medication Instructions Recorded Naproxen [Naprosyn] 500 mg PO BID #20 tablet 06/01/19 Allergies Allergy/AdvReac Type Severity Reaction Status Date / Time No Known Drug Allergies Allergy Verified 04/14/19 14:11 Travel Screening - Travel/Exposure Within Last 30 Days Have you traveled within the last 30 days?: No - Travel/Exposure Within Last Year Have you traveled outside the [place] in the last year?: No - Travel Symptoms Symptom Screening: None Review of Systems Constitutional: Reports: As per HPI. Denies: Chills, Fever, Malaise, Night sweats, Weakness, Weight change Eyes: Reports: As per HPI. Denies: Eye discharge, Eye pain, Photophobia, Vision change ENT: Reports: As per HPI. Denies: Congestion, Dental pain, Ear pain, Epistaxis, Hearing loss, Throat pain Respiratory: Reports: As per HPI. Denies: Cough, Dyspnea, Hemoptysis, Stridor, Wheezes Cardiovascular: Reports: As per HPI. Denies: Arrhythmia, Chest pain, Dyspnea on exertion, Edema, Murmurs, Orthopnea, Palpitations, Paroxysmal nocturnal dyspnea, Rheumatic Fever, Syncope Endocrine: Reports: As per HPI. Denies: Fatigue, Heat or cold intolerance, Polydipsia, Polyuria Gastrointestinal: Reports: As per HPI. Denies: Abdominal pain, Constipation, Diarrhea, Hematemesis, Hematochezia, Melena, Nausea, Vomiting Genitourinary: Reports: As per HPI. Denies: Abnormal menses, Discharge, Dyspareunia, Dysuria, Frequency, Hematuria, Incontinence, Retention, Urgency Musculoskeletal: Reports: As per HPI. Denies: Arthralgia, Back pain, Gout, Joint swelling, Myalgia, Neck pain Skin: Reports: As per HPI. Denies: Bruising, Change in color, Change in hair/nails, Lesions, Pruritus, Rash Neurological: Reports: As per HPI. Denies: Abnormal gait, Confusion, Headache, Numbness, Paresthesias, Seizure, Tingling, Tremors, Vertigo, Weakness Psychiatric: Reports: As per HPI. Denies: Anxiety, Auditory hallucinations, Depression, Homicidal thoughts, Suicidal thoughts, Visual hallucinations Hematological/Lymphatic: Reports: As per HPI. Denies: Anemia, Blood Clots, Easy bleeding, Easy bruising, Swollen glands Past Medical History - SOCIAL HISTORY Smoking Status: Current every day smoker Alcohol Use: Heavy Drug Use: Heavy Drug Use Detail:: Marijuana - RESPIRATORY Hx Respiratory Disorders: No - CARDIOVASCULAR Hx Cardio Disorders: No - NEURO Hx Neuro Disorders: No - GI Hx GI Disorders: No - Hx Genitourinary Disorders: Yes Hx UTI: Yes - ENDOCRINE Hx Endocrine Disorders: No - MUSCULOSKELETAL Hx Musculoskeletal Disorders: Yes Hx Back Injury: Yes (Neck and head injury in 2009) - PSYCH Hx Psych Problems: No - HEMATOLOGY/ONCOLOGY Hx Hematology/Oncology Disorders: No Family Medical History Any Significant Family History?: Yes Hx Cancer: Grandparents *Cancer Comment: Stomach and breast Physical Exam - General General Appearance: Alert, Oriented x3, Cooperative, No acute distress Limitations: No limitations - Head Head exam: Normal inspection - Eye Eye exam: Normal appearance, PERRL Pupils: Normal accommodation - ENT ENT exam: Normal exam, Mucous membranes moist, Normal external ear exam, Normal orophraynx, TM's normal bilaterally Ear exam: Normal external inspection. negative: External canal tenderness Nasal Exam: Normal inspection. negative: Discharge, Sinus tenderness Mouth exam: Normal external inspection, Tongue normal Teeth exam: Normal inspection. negative: Dental caries Throat exam: Normal inspection. negative: Tonsillar erythema, Tonsillar exudate - Neck Neck exam: Normal inspection, Full ROM. negative: Tenderness - Respiratory Respiratory exam: Normal lung sounds bilaterally. negative: Respiratory distress - Cardiovascular Cardiovascular Exam: Regular rate, Normal rhythm, Normal heart sounds - GI/Abdominal GI/Abdominal exam: Soft, Tenderness (left lower quad pain). negative: Distended, Guarding, Rebound, Rigid - Rectal Rectal exam: Deferred - exam: Deferred - Extremities Extremities exam: Normal inspection, Full ROM, Normal capillary refill. negative: Tenderness - Back Back exam: Reports: Normal inspection, Full ROM. Denies: Muscle spasm, Rash noted, Tenderness - Neurological Neurological exam: Alert, Normal gait, Oriented X3, Reflexes normal - Psychiatric Psychiatric exam: Normal affect, Normal mood - Skin Skin exam: Dry, Intact, Normal color, Warm Course Vital Signs 06/01/19 06:05 Temperature 97.5 F L Pulse Rate 91 H Respiratory 24 Rate Blood Pressure 163/113 Pulse Ox [address] Sevilla at 7am and patient was in the CT scanner and chart reviewed and report obtained from Tressa and patient informed me sudden left sided lower abdominal pain and she denies vomiting or diarrhea and some mild dysuria and she had two shots of alcohol today and she drinks every day and admits to an alcohol problem and she uses marijuana and tobaccco. PMH right ovarian cyst requiring surgery with removal of the cyst. Patient said the toradol is helping and obtained a urine. patient has a soft abdomin and no rigidity of rebound. Patient admits to sex last night and no pain with sex. - Reevaluation(s) Reevaluation #1: patient walked to the bathroom without any difficulty 06/01/19 07:51 Reevaluation #2: Initially patient only admitted to marijuana and alchol use and when I confronted her on the positive meth she admitted to doing that occassionally and I told her she needs to see a substance abuse metal temperer for help with that problem 06/01/19 08:18 Reevaluation #3: vitals are stable 06/01/19 08:24 Reevaluation #4: 06/01/19 08:[address] Latham and she would like her sent to [facility] to see Property Damage Claims Adjustor probation officer. 06/01/19 09:05 Reevaluation #5: discussed case with pateint and she is aware of transfer and care plan. 09:12 - Consultations Consultation #1: discussed case with Dr Chiang ED physician and will transfer via ambulance. Medical Decision Making - Data Complexity MDM Data: Labs Ordered and/or Reviewed (hg 12.1), X-Ray Ordered and/or Reviewed (3 cm left ovarian cyst possibly hemorrgagic small to moderate pelvic fluid) - Lab Data Result diagrams: 06/01/19 06:15 06/01/19 06:15 Lab Results 06/01/19 06/01/19 06/01/19 Range/Units 06:15 06:15 06:15 WBC 6.0 (4.2-12.2) K/uL RBC 4.26 (3.80-5.40) M/uL Hgb 12.1 (11.6-16.0) gm/dl Hct 37.9 (35.0-47.0) % MCV 89.0 (81-97) fl MCH 28.4 (27-33) pg MCHC 31.9 L (32-36) g/dl RDW 14.4 (11.5-14.5) % Plt Count 298 (130-400) K/uL MPV 9.7 (7.4-10.4) fl Gran % 49.9 (47-80) % Lymphocytes % 35.3 (16-45) % Monocytes % 11.0 H (0-9) % Eosinophils % 3.0 (0-6) % Basophils % 0.8 (0-6) % Absolute Neutrophils 2.99 Sodium 136 (136-145) mmol/L Potassium 3.7 (3.4-4.5) mmol/L Chloride 99 (98-107) mmol/L Carbon Dioxide 22.0 (22-29) mmol/L Anion Gap 15.0 (7-16) BUN 16 (6-20) mg/dL Creatinine 0.6 (0.5-0.9) mg/dL Estimated GFR > 60 mL/min Random Glucose 99 (74-109) mg/dL Calcium 8.9 (8.6-10.0) mg/dL Total Bilirubin 0.30 (0.2-1.0) mg/dL AST 32 (10.0-35.0) U/L ALT 33 (<33) U/L Alkaline Phosphatase 76 (35-104) U/L Total Protein 6.5 L (6.6-8.7) g/dL Albumin 4.1 (4.0-5.0) g/dL Globulin 2.4 (1.4-4.8) gm/dL Albumin/Globulin Ratio 1.7 (1.1-1.8) Lipase 19 (13-60) U/L Ethyl Alcohol 0.012 H (0-0.010) g/dL Disposition Clinical Impression: Substance abuse Abdominal pain Qualifiers: Abdominal location: left lower quadrant Qualified Code(s): R10.32 - Left lower quadrant pain Ovarian cyst Qualifiers: Laterality: left Qualified Code(s): N83.202 - Unspecified ovarian cyst, left side Disposition: Acute Care Hospital Transfer Condition: (2) Stable Additional Instructions: After discussion with Dr Latham will transfer via ambulance to [facility] for further evaluation by Property Damage Claims Adjustor probation officer at [facility]. follow up with substance abuse metal temperer, phone number given to patient on discharge. Prescriptions: Naproxen [Naprosyn] 500 mg PO BID #20 tablet Forms: Patient Portal Access Time of Disposition: 09:18 Quality - Quality Measures Quality Measures: N/A - Blood Pressure Screening Does Patient Have Any of the Following: No Blood Pressure Classification: Hypertensive Reading Systolic Measurement: 163 Diastolic Measurement: 113 Screening for High Blood Pressure: < Pre-Hypertensive BP, F/U Documented > [G8950] Pre-Hypertensive Follow-up Interventions: Referral to alternative/primary care provider.
[2019-06-01 07:36] LABS: BARBITURATE SCREEN URINE NOT DETECTED; BENZODIAZEPINE SCREEN URINE NOT DETECTED; METHADONE SCREEN URINE NOT DETECTED; TRICYCLIC ANTIDEPRESSANT SCRN NOT DETECTED
--- NOTE | 2019-06-01 07:36 | CT SCAN REPORT ---
EXAMINATION: CT Abdomen and Pelvis without IV Contrast EXAM DATE: 06/01/2019 7:11 AM TECHNIQUE: Standard protocol CT imaging of the abdomen and pelvis was performed without intravenous c ontrast. INDICATION: Sharp pain in both sides of the lower abdomen which began approximately 3 hours ago COMPARISON: April 14, 2019 ENCOUNTER: Not applicable CT ABDOMEN AND PELVIS FINDINGS: Lung Bases: Minimal bibasilar dependent atelectasis right greater than left. Hepatobiliary: The liver has a normal size with a smooth surface. There is no biliary dilatation and the gallbladder is unremarkable. Pancreas: The pancreas is normal. Spleen: The spleen is not enlarged. Adrenals: The adrenal glands are normal. Kidneys, Ureters, & Bladder: Both kidneys have a normal size and morphology. There is no hydronephro sis. No renal calculi are present. Both ureters have a normal course and caliber and the urinary blad janene a normal morphology and uniform wall thickness. No ureteral or bladder calculi are identified. Gastrointestinal: The stomach and small bowel are normal with no obstruction or inflammation. The carlos endix is not identified. The large bowel is within normal limits. Reproductive Organs: Low-attenuation asymmetrical left adnexal hypodensity measuring 3.1 x 2.7 cm. Pe rhaps hemorrhagic cyst in light of the dense pelvic free fluid. Lymphatic System: There is no adenopathy within the abdomen or pelvis. Vasculature: Normal caliber abdominal aorta Peritoneum: Small to moderate amount of dense free fluid dependently within the pelvis compatible wit h hemoperitoneum. Perhaps hemorrhagic adnexal cyst. Abdominal wall & Musculoskeletal: No suspicious bone lesions. Assessment of the solid organs, soft tissues, and vascular structures is overall limited on noncontra st imaging, IMPRESSION: Suspect left adnexal hemorrhagic cyst. Small to moderate amount of dense free fluid dependently withi n the pelvis. Dictated by: Doni Hooker DO on 06/01/2019 7:27 AM. .
[2019-06-01 07:37] LABS: AMPHETAMINE SCREEN URINE NOT DETECTED; COCAINE SCREEN URINE NOT DETECTED; METHAMPHETAMINE SCREEN DETECTED; OPIATE SCREEN URINE NOT DETECTED; OXYCODONE SCREEN URINE NOT DETECTED; PHENCYCLIDINE SCREEN URINE NOT DETECTED; PROPOXYPHENE SCREEN URINE NOT DETECTED; THC SCREEN URINE DETECTED
[2019-06-01] MEDS ORDERED: NAPROXEN 250 MG TABLET PO ONE (07:42)
== END 2019-06-01 09:59 | disposition short-term general hospital (02) ==
LOC: ER 06:02
DX: N83.202 Unspecified ovarian cyst, left side (principal); R10.32 Left lower quadrant pain; R30.0 Dysuria; R11.0 Nausea; F17.210 Nicotine dependence, cigarettes, uncomplicated; F15.20 Other stimulant dependence, uncomplicated
CPT/HCPCS: 74176; 80053; 80305; 80320; 81003; 81025; 83690; 85025; 96374; 96375; 99285; J1885; J2405; J7030